=== PATIENT | male | born 1950 | race Caucasian/White ===

== ENCOUNTER 2024-08-11 10:32 | Day surgery (SDC) | payer OTHER, SELFPAY ==
--- NOTE | 2024-08-10 14:04 | EKG_ITS ---
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 : 1950 Requested By: Mavis Vargas Order Number: [id number] Reading MD: Mavis Vargas Measurements Intervals [place] Rate: 84 P: 269 IA: 365 QRS: 258 QRSD: 181 T: 84 QT: 425 QTc: 503 Interpretive Statements ELECTRONIC ATRIAL PACEMAKER MARKED RIGHT AXIS DEVIATION [QRS AXIS > 100] INTRAVENTRICULAR CONDUCTION DELAY [130+ ms QRS DURATION] INFERIOR MYOCARDIAL INFARCTION , POSSIBLY ACUTE [40+ ms Q WAVE AND/OR ST/T ABNORMALITY IN II/aVF] ANTEROSEPTAL MYOCARDIAL INFARCTION , POSSIBLY ACUTE [40+ ms Q WAVE IN V1-V4] ACUTE VT No previous ECG available for comparison /[id number]/[email or web address]/[id number]/[id number].pdf
[2024-08-10 16:29] LABS: Basophils # (Auto) 0.1 Thou/mm3 (0.0-0.2); Basophils % (Auto) 1 % (0-2.5); Eosinophils # (Auto) 0.3 Thou/mm3 (0.0-0.5); Eosinophils % (Auto) 4 % (0-10); Hematocrit 43.1 % (41.0-53.0); Hemoglobin 14.9 g/dL (13.5-16.0); Immature Granulocytes % (Auto) 0 % (0-0); Immature Granulocytes Auto 0.02 Thou/mm3 (0.00-0.00); Lymphocytes # (Auto) 2.3 Thou/mm3 (1.0-4.8); Lymphocytes % (Auto) 35 % (10-50); Mean Corpuscular HGB Conc 34.6 g/dl (31.0-37.0); Mean Corpuscular Hemoglobin 32.5 pg (25.0-35.0); Mean Corpuscular Volume 94 fL (80-100); Monocytes # (Auto) 0.7 Thou/mm3 (0.0-0.8); Monocytes % (Auto) 10 % (0-12); Neutrophils # (Auto) 3.3 Thou/mm3 (1.8-7.7); Neutrophils % (Auto) 49 % (37-80); Nucleated Red Blood Cell % 0 /100 WBC (0); Platelet Count 198 Thou/mm3 (140-440); RDW Standard Deviation 43.5 fL (35.1-43.9); Red Blood Count 4.59 Miln/mm3 (4.50-5.90); White Blood Count 6.6 Thou/mm3 (3.8-10.6)
[2024-08-10 16:37] LABS: INR 1.6 (0.9-1.3); Partial Thromboplastin Time 30.8 Seconds (22.0-36.0); Prothrombin Time 16.5 Seconds (9.0-12.2)
[2024-08-10 16:50] LABS: Anion Gap 12 (7-16); BUN/Creatinine Ratio 12 Ratio (12-20); Blood Urea Nitrogen 12 mg/dL (9-23); Calcium 9.1 mg/dL (8.3-10.6); Carbon Dioxide 25.2 mMol/L (20.0-31.0); Chloride 104 mMol/L (98-107); Glucose 102 mg/dL (74-106); Osmolality,Calculated 280 (275-295); Potassium 4.1 mMol/L (3.4-5.1); Sodium 141 mMol/L (136-145); eGFR > 60 See Note
[2024-08-11] VITALS (10 sets, daily range): BP systolic 105–152; BP diastolic 59–107; PULSE 65–81; RESP 10–22; TEMP 36.3; O2SAT 95–97; BMI 32.2
--- NOTE | 2024-08-12 10:25 | ESOP_ITS ---
RE: KRISTI RICHARDS : 1950 DATE OF OPERATION: 08/11/2024 PROCEDURE PERFORMED: 1. Diagnostic left heart cardiac catheterization, selective coronary angiogram, left ventricular angiogram, CPT 81843. 2. Conscious sedation for 30-minute duration. 3. Ultrasound-guided access of right radial artery. DIAGNOSIS: Angina pectoris,__ recurrent chest pain, and required emergency room visits. HISTORY AND INDICATIONS: The patient is a 73-year-old male with a past medical history of hypertension and AFib. He has a recurrent history of shortness of breath and chest tightness, requiring emergency room visits recently and also has a history of pacemaker implantation. The patient _ angina pectoris, had abnormal stress test in the past. Coronary angiogram was recommended to assess if the patient is a candidate for cardiac intervention. DESCRIPTION OF PROCEDURE: The patient was brought to cardiac catheterization laboratory where he was given total of 2 mg Versed and 50 mcg of fentanyl for conscious sedation. Right radial artery was cannulated by micropuncture technique. Ultrasound guidance was used. A 6- [place] Glidesheath was introduced. Selective right and left coronary angiogram was performed by TIG 4.5 diagnostic catheter. Left heart catheterization and left ventricular angiogram were performed using a TIG- 4.5 diagnostic catheter. Multiple views were obtained. Cardiac catheterization showed following findings Hemodynamics: Left ventricular pressure is 120/10. Aortic pressure is 120/80. No gradient across the aortic valve. Left ventricular end-diastolic pressure is 20. Left ventricular angiogram showed normal left ventricular wall motion. Ejection fraction is 60%. Coronary angiogram showed the following: The right coronary artery is large and dominant, giving a PDA, posterolateral branch showed no significant stenosis__. Left coronary system: Left main coronary artery is normal. Left anterior descending artery showed mild calcification. There is no evidence of significant stenosis. First diagonal branch of the left anterior descending artery is a 2.5 mm vessel and showed an 80% stenosis of the ostium of the left diagonal branch. Circumflex artery is very large and nondominant, appears normal. SUMMARY OF FINDINGS AND SUGGESTIONS: Single-vessel coronary artery disease, evidence of 80% stenosis of the diagonal branch and left anterior descending artery, 2.5 mm ostial lesion. RECOMMENDATIONS: The patient will continue medical management since the vessel is a 2.5 mm vessel and non-critical lesion of the ostium, felt the complexity does not warrant intervention since it is too close to the LAD. Maximal medical management with beta blockers and statin and a prevention program. DT: 08:30:13 TT: 09:52:00 Ref: [id number] - TID: [id number] MTDD
== END 2024-08-11 15:45 | disposition home or self-care (01) ==
PROVIDERS: Internal Medicine Cardiovascular Disease; Referring Provider Internal Medicine Cardiovascular Disease; Visit Provider Internal Medicine Cardiovascular Disease
DX: I25.118 Atherosclerotic heart disease of native coronary artery with other forms of angina pectoris (principal); I20.9 Angina pectoris, unspecified; I48.91 Unspecified atrial fibrillation; I10 Essential (primary) hypertension; Z01.810 Encounter for preprocedural cardiovascular examination
CPT/HCPCS: 93458; 36415; 80048; 85025; 85610; 85730; 93005; 99152; A4649; C1769; C1887; C1894; J0171; J0461; J1643; J2250; J2310; J2371; J3010; J3490; Q9967; J2305